=== PATIENT | female | born 2000 | race Caucasian/White ===

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

== ENCOUNTER 2018-10-28 08:48 | Emergency (ER) | payer OTHER ==
[2018-10-28 09:09] VITALS: BP 114/49; PULSE 61; TEMP 98.2; BMI 39.1
--- NOTE | 2018-10-28 10:18 | PDOC ---
History of Present Illness - General Chief Complaint: Chest Pain Stated Complaint: HICCUP/PAIN Time Seen by Provider: 10/28/18 10:05 History Source: Patient Exam Limitations: Clinical Condition - History of Present Illness Initial Comments: 10/28/18 10:13 Patient with no significant past medical history of present with complaint of three-day history of intermittent midsternal chest pain with intermittent hiccups. Patient reports pain is localized to the midsternal area and painful to press on the middle of chest. Patient denies nausea, vomiting, numbness or tingling sensation, dizziness, lightheadedness, palpitations. Patient denies any other symptoms Timing/Duration: other (3 days) Past History - Past Medical History Allergies/Adverse Reactions: Allergies Allergy/AdvReac Type Severity Reaction Status Date / Time No Known Allergies Allergy Verified 10/28/18 09:09 Home Medications: Ambulatory Orders Naproxen 500 mg PO BID PRN #20 tablet 10/28/18 COPD: No GI Disorders: Yes - Reproductive History (#): 0 Para: 0 Tubal Ligation: No - Immunization History Immunization Up to Date: Yes - Suicide/Smoking/Psychosocial Hx Smoking Status: No Smoking History: Never smoked Have you smoked in the past 12 months: No Number of Cigarettes Smoked Daily: 0 Hx Alcohol Use: No Drug/Substance Use Hx: No Substance Use Type: None Review of Systems - Review of Systems Able to Perform ROS?: Yes Is the patient limited French proficient: No Constitutional: No: See HPI, Fever, Malaise, Weakness HEENTM: No: Symptoms Reported, See HPI, Eye Pain, Blurred Vision, Tearing, Recent change in vision, Double Vision, Cataracts, Ear Pain, Ocular Prothesis, Ear Discharge, Nose Pain, Nose Congestion, Tinnitus, Nose Bleeding, Hearing Loss , Throat Pain, Throat Swelling, Mouth Pain, Dental Problems, Difficulty Swallowing, Mouth Swelling, Other Respiratory: No: Symptoms reported, See HPI, Cough, Orthopnea, Shortness of Breath, SOB with Exertion, SOB at Rest, Stridor, Wheezing, Productive cough, Hemoptysis, Other Cardiac (ROS): Yes: Symptoms Reported, See HPI, Chest Pain (mid-sternum). No: Edema, Irregular Heart Rate, Lightheadedness, Palpitations, Syncope, Chest Tightness, Other ABD/GI: No: Constipated, Diarrhea, Nausea, Vomiting Neurological: No: Numbness, Paresthesia, Weakness, Dizziness All Other Systems: Reviewed and Negative *Physical Exam - Vital Signs Last Vital Signs Temp Pulse Resp BP Pulse Ox 98.2 F 61 18 114/49 L 98 10/28/18 09:06 10/28/18 09:06 10/28/18 09:06 10/28/18 09:06 10/28/18 09:06 - Physical Exam Comments: 10/28/18 10:16 GENERAL: Well developed, well nourished. Awake and alert. No acute distress. HEENT: Normocephalic, atraumatic. PERRLA, EOMI. No conjunctival pallor. Sclera are non-icteric. Moist mucous membranes. Oropharynx is clear. NECK: Supple. Full ROM. CARDIOVASCULAR: Mild point tenderness to midsternal. Regular rate and rhythm. No murmurs, rubs, or gallops. Distal pulses are 2+ and symmetric. PULMONARY: No evidence of respiratory distress. Lungs clear to auscultation bilaterally. No wheezing, rales or rhonchi. ABDOMINAL: Soft. Non-tender. Non-distended. No rebound or guarding. No organomegaly. Normoactive bowel sounds. MUSCULOSKELETAL : Mild reproducible retrosternal chest tenderness.Normal range of motion at all joints. EXTREMITIES: No cyanosis. No clubbing. No edema. SKIN: Warm and dry. Normal capillary refill. No rashes. No jaundice. NEUROLOGICAL: Alert, awake, appropriate. Gait is normal without ataxia. PSYCHIATRIC: Cooperative. Good eye contact. Appropriate mood General Appearance: Yes: Nourished, Appropriately Dressed. No: Apparent Distress Moderate Sedation - Procedure Monitoring Vital Signs: Procedure Monitoring Vital Signs Temperature 98.2 F 10/28/18 09:06 Pulse Rate 61 10/28/18 09:06 Respiratory Rate 18 10/28/18 09:06 Blood Pressure 114/49 L 10/28/18 09:06 O2 Sat by Pulse Oximetry (%) 98 10/28/18 09:06 ED Treatment Course - RADIOLOGY Radiology Studies Ordered: Category Date Time Status CHEST PA & LAT [RAD] Stat Radiology 10/28/18 10:12 Ordered Medical Decision Making - Medical Decision Making 10/28/18 10:18 Patient with no significant past medical history of present with complaint of three-day history of intermittent midsternal chest pain with intermittent hiccups. Patient reports pain is localized to the midsternal area and painful to press on the middle of chest. Patient denies nausea, vomiting, numbness or tingling sensation, dizziness, lightheadedness, palpitations. Patient denies any other symptoms. Exam significant for mild reproducible midsternal chest tenderness otherwise unremarkable exam. EKG shows normal sinus rhythm. Symptoms likely costochondritis. Checks initially ordered to rule out acute chest pathology. 10/28/18 10:35 Chest x-ray shows no acute infiltrate or pathology. Patient is stable for discharge and naproxen as needed for pain with PCP follow-up *DC/Admit/Observation/Transfer Diagnosis at time of Disposition: Costochondral chest pain - Discharge Dispostion Disposition: HOME Condition at time of disposition: Stable Decision to Admit order: No - Prescriptions Prescriptions: Naproxen 500 mg PO BID PRN #20 tablet PRN Reason: pain - Referrals - Patient Instructions Printed Discharge Instructions: DI for Costochondritis Additional Instructions: EKG was normal. chest x-ray was normal as well. Symptoms likely from muscle pain. Take prescribed medication as needed for pain. Follow-up with primary care - Post Discharge Activity
[2018-10-28] MEDS ORDERED: IBUPROFEN 400 MG TABLET (FP) PO ONE (10:37)
[2018-10-28] MEDS ORDERED: IBUPROFEN 600 MG TABLET (FP) PO ONE (10:40)
--- NOTE | 2018-10-28 15:34 | EKG ---
Test Reason : Blood Pressure : / mmHG Vent. Rate : 062 BPM Atrial Rate : 062 BPM P-R Int : 158 ms QRS Dur : 098 ms QT Int : 408 ms P-R-T Axes : 029 071 047 degrees QTc Int : 414 ms SINUS RHYTHM WITH MARKED SINUS ARRHYTHMIA OTHERWISE NORMAL ECG WHEN COMPARED WITH ECG OF 20-FEB-2014 14:01, PREVIOUS ECG IS PRESENT Confirmed by CESAR KULKARNI MD ([id number]) on 10/28/2018 3:34:08 PM Referred By: Confirmed By:CESAR KULKARNI MD
== END 2018-10-28 10:55 | disposition home or self-care (01) ==
LOC: JERFT 08:48
DX: M94.0 Chondrocostal junction syndrome [Tietze] (principal)
CPT/HCPCS: 71046-TC-FY; 93005; 93010; 99281-25

== ENCOUNTER 2019-02-12 18:50 | Emergency (ER) | payer OTHER | END 2019-02-12 22:00 | disposition home or self-care (01) | LOC: JER 18:50 ==

== ENCOUNTER 2019-08-20 12:16 | Emergency (ER) | payer SELFPAY ==
[2019-08-20 12:36] VITALS: BMI 32.8
[2019-08-20] MEDS ORDERED: PANTOPRAZOLE SODIUM 40 MG VIAL IVPUSH ONE (13:30)
[2019-08-20] MEDS ORDERED: ONDANSETRON 4 MG/2 ML VIAL IVPUSH ONE (13:30)
[2019-08-20] MEDS ORDERED: KETOROLAC TROMETHAMINE 30 MG/1 ML VIAL IVPUSH ONE (13:30)
[2019-08-20] MEDS ORDERED: SODIUM CHLORIDE 1,000 ML IV STA (13:32)
[2019-08-20] MEDS ORDERED: PANTOPRAZOLE SODIUM 40 MG VIAL ONE (14:23)
[2019-08-20] MEDS ORDERED: ONDANSETRON 4 MG/2 ML VIAL ONE (14:23)
[2019-08-20] MEDS ORDERED: KETOROLAC TROMETHAMINE 30 MG/1 ML VIAL ONE (14:23)
--- NOTE | 2019-08-20 14:34 | PDOC ---
History of Present Illness - General History Source: Patient Exam Limitations: No Limitations - History of Present Illness Travel History: No Initial Comments: 08/20/19 13:33 19-year-old female presents the emergency room with complaints of epigastric burning along with mild fatigue, and menstrual cycle for the past 2 weeks. Patient states normally has prolonged menstrual cycles but also concerned since she just recently had a gastric balloon placed in [facility] earlier last month. Patient states was placed on Protonix which seems not to alleviate her epigastric burning. Patient now states midsternal burning for the past 2 days and so decided to come to the ER for further evaluation. Patient denies shortness of breath, palpitations, but does state mild nausea after meals. Quality: reports: moderate, burning Abdominal Pain Onset Location: reports: epigastric Pain Radiation: reports: chest Activities at Onset: reports: none Aggravating Factors: improves with: Eating Alleviating Factors: improves with: None <Diane Trinidad - Last Filed: 08/20/19 16:01> <Martine Burnette - Last Filed: 08/20/19 18:24> - General Chief Complaint: Pain, Acute Stated Complaint: CHEST PAIN Time Seen by Provider: 08/20/19 12:45 Past History - Travel Traveled outside of the country in the last 30 days: No Close contact w/someone who was outside of country & ill: No - Past Medical History COPD: No GI Disorders: No - Surgical History GI Surgery: Yes (Gastric Balloon In DR 08/02) - Reproductive History (#): 0 Para: 0 Tubal Ligation: No - Immunization History Immunization Up to Date: Yes - Psycho Social/Smoking Cessation Hx Smoking Status: No Smoking History: Unknown if ever smoked Have you smoked in the past 12 months: No Number of Cigarettes Smoked Daily: 0 Information on smoking cessation initiated: No Hx Alcohol Use: No Drug/Substance Use Hx: No Substance Use Type: None Patient Lives Alone: No Lives with/in: parents <Diane Trinidad - Last Filed: 08/20/19 16:01> <Martine Burnette - Last Filed: 08/20/19 18:24> - Past Medical History Allergies/Adverse Reactions: Allergies Allergy/AdvReac Type Severity Reaction Status Date / Time No Known Allergies Allergy Verified 08/20/19 12:36 Home Medications: Ambulatory Orders Naproxen Sodium [Midol] 220 mg PO ONCE 02/12/19 Ondansetron HCl [Zofran] 4 mg PO QID #20 tablet 08/20/19 Abd/GI Specific PMHX - Complaint Specific PMHX Diverticulitis: No Gall Bladder Disease: No GERD: No Hepatitis: No Irritable Bowel Synd (IBS): No <Diane Trinidad - Last Filed: 08/20/19 16:01> Review of Systems - Review of Systems Able to Perform ROS?: No Is the patient limited Cypriot proficient: No Constitutional: Yes: Loss of Appetite (mild), Weakness HEENTM: No: Symptoms Reported Respiratory: No: Symptoms reported Cardiac (ROS): Yes: Chest Pain ABD/GI: Yes: Nausea, Indigestion : No: Symptoms Reported Musculoskeletal: Yes: Muscle Weakness Integumentary: No: Symptoms Reported Neurological: Yes: Weakness. No: Headache, Dizziness <Diane Trinidad - Last Filed: 08/20/19 16:01> *Physical Exam - Vital Signs Last Vital Signs Temp Pulse Resp BP Pulse Ox 97.8 F 107 H 14 114/78 98 08/20/19 12:34 08/20/19 12:34 08/20/19 12:34 08/20/19 12:34 08/20/19 12:34 - Physical Exam General Appearance: Yes: Nourished, Appropriately Dressed. No: Apparent Distress HEENT: positive: Pale Conjunctivae Respiratory/Chest: positive: Lungs Clear, Normal Breath Sounds. negative: Chest Tender, Respiratory Distress, Accessory Muscle Use Cardiovascular: positive: Regular Rhythm, Tachycardia. negative: Murmur Gastrointestinal/Abdominal: positive: Soft, Tenderness (epigastric) Extremity: positive: Normal Inspection Integumentary: positive: Normal Color, Warm Neurologic: positive: Motor Strength 5/5 (ambulatory) <Diane Trinidad - Last Filed: 08/20/19 16:01> - Vital Signs Last Vital Signs Temp Pulse Resp BP Pulse Ox 97.8 F 107 H 14 114/78 98 08/20/19 12:34 08/20/19 12:34 08/20/19 12:34 08/20/19 12:34 08/20/19 12:34 <Martine Burnette - Last Filed: 08/20/19 18:24> Heart Score/ECG Review - ECG Intrepretation Rhythm: Regular Rhythm (Rate 86 normal sinus rhythm no ST elevation or depression) <ViviDiane - Last Filed: 08/20/19 16:01> ED Treatment Course - LABORATORY CBC & Chemistry Diagram: 08/20/19 14:11 08/20/19 14:11 <ViviDiane - Last Filed: 08/20/19 16:01> - LABORATORY CBC & Chemistry Diagram: 08/20/19 14:11 08/20/19 14:11 - ADDITIONAL ORDERS Additional order review: Laboratory Results 08/20/19 08/20/19 08/20/19 14:11 14:11 14:11 D-Dimer 1411 H Sodium Potassium Chloride Carbon Dioxide Anion Gap BUN Creatinine Est GFR (CKD-EPI)AfAm Est GFR (CKD-EPI)NonAf Random Glucose Calcium Magnesium Total Bilirubin AST ALT Alkaline Phosphatase Total Protein Albumin Lipase Serum , Qual Negative Blood Type A POSITIVE Antibody Screen Negative 08/20/19 14:11 D-Dimer Sodium 140 Potassium 4.7 Chloride 104 Carbon Dioxide 19 L Anion Gap 17 H BUN 12.9 Creatinine 1.1 Est GFR (CKD-EPI)AfAm 83.11 Est GFR (CKD-EPI)NonAf 71.71 Random Glucose 79 Calcium 9.8 Magnesium 2.2 Total Bilirubin 0.3 AST 35 ALT 39 Alkaline Phosphatase 84 Total Protein 8.5 H Albumin 4.1 Lipase 367 Serum , Qual Blood Type Antibody Screen 08/20/19 14:11 RBC 5.20 MCV 79.7 L MCHC 31.9 L RDW 14.7 MPV 9.5 Neutrophils % 79.0 D Lymphocytes % 15.6 D Monocytes % 5.1 Eosinophils % 0.1 D Basophils % 0.2 <Martine Burnette - Last Filed: 08/20/19 18:24> Medical Decision Making - Medical Decision Making 08/20/19 14:42 Chief complaint: Patient with epigastric and midsternal chest burning along with fatigue and weakness. Patient status post gastric balloon 17 days ago and ER and states has been eating as recommended despite the nausea and epigastric pain patient currently on Protonix stating symptoms do not resolve patient also with prolonged menses x2 weeks Exam: Patient with pale conjunctiva tachycardic in triage epi gastric tenderness on exam plan Plan: Labs, urine, antiemetics, Toradol, IV Protonix, 08/20/19 15:20 Laboratory Tests 02/12/19 08/20/19 08/20/19 20:17 14:11 14:11 WBC 11.6 H Hgb 13.2 Hct 41.4 D-Dimer 1411 H C. trachomatis (TADEO) Negative N. gonorrhoeae (TADEO) Negative Chest CTA ordered 08/20/19 15:42 Laboratory Tests 08/20/19 08/20/19 14:11 14:11 Sodium 140 Potassium 4.7 Chloride 104 Carbon Dioxide 19 L Anion Gap 17 H BUN 12.9 Creatinine 1.1 Est GFR (CKD-EPI)AfAm 83.11 Est GFR (CKD-EPI)NonAf 71.71 Random Glucose 79 Calcium 9.8 Total Protein 8.5 H Albumin 4.1 Lipase 367 Serum , Qual Pending Pt states feeling much better 08/20/19 16:01 Laboratory Tests 08/20/19 14:11 Serum , Qual Negative <Diane Trinidad - Last Filed: 08/20/19 16:01> Discharge <Diane Trinidad - Last Filed: 08/20/19 16:01> <Martine Burnette - Last Filed: 08/20/19 18:24> - Additional Discharge Information Prescriptions: Ondansetron HCl [Zofran] 4 mg PO QID #20 tablet - Follow up/Referral Referrals: Gaetano Mckeon [Primary Care Provider] - - Patient Discharge Instructions - Post Discharge Activity
[2019-08-20 14:43] LABS: BASO % 0.2 % (0-2.0); EOS % 0.1 % (0-4.5); HEMATOCRIT 41.4 % (32.4-45.2); HEMOGLOBIN 13.2 GM/dL (10.7-15.3); LYMPH % 15.6 % (8-40); MCH 25.4 pg (25.7-33.7); MCHC 31.9 g/dl (32.0-36.0); MEAN CELL VOLUME 79.7 fl (80-96); MEAN PLT VOLUME 9.5 fl (7.5-11.1); MONO % 5.1 % (3.8-10.2); PLATELET COUNT 367 K/MM3 (134-434); RDW 14.7 % (11.6-15.6); WHITE BLOOD COUNT 11.6 K/mm3 (4.0-10.0)
[2019-08-20 15:28] LABS: ALBUMIN 4.1 g/dl (3.4-5.0); BILIRUBIN,TOTAL 0.3 mg/dL (0.2-1); BLOOD UREA NITROGEN 12.9 mg/dL (7-18); CALCIUM 9.8 mg/dL (8.5-10.1); CREATININE 1.1 mg/dL (0.55-1.3); MAGNESIUM 2.2 mg/dL (1.8-2.4); POTASSIUM 4.7 mmol/L (3.5-5.1); TOT PROT 8.5 g/dl (6.4-8.2)
--- NOTE | 2019-08-20 18:18 | PDOC ---
*Physical Exam - Vital Signs Last Vital Signs Temp Pulse Resp BP Pulse Ox 97.8 F 107 H 14 114/78 98 08/20/19 12:34 08/20/19 12:34 08/20/19 12:34 08/20/19 12:34 08/20/19 12:34 ED Treatment Course - LABORATORY CBC & Chemistry Diagram: 08/20/19 14:11 08/20/19 14:11 - ADDITIONAL ORDERS Additional order review: Laboratory Results 08/20/19 08/20/19 08/20/19 14:11 14:11 14:11 D-Dimer 1411 H Sodium Potassium Chloride Carbon Dioxide Anion Gap BUN Creatinine Est GFR (CKD-EPI)AfAm Est GFR (CKD-EPI)NonAf Random Glucose Calcium Magnesium Total Bilirubin AST ALT Alkaline Phosphatase Total Protein Albumin Lipase Serum , Qual Negative Blood Type A POSITIVE Antibody Screen Negative 08/20/19 14:11 D-Dimer Sodium 140 Potassium 4.7 Chloride 104 Carbon Dioxide 19 L Anion Gap 17 H BUN 12.9 Creatinine 1.1 Est GFR (CKD-EPI)AfAm 83.11 Est GFR (CKD-EPI)NonAf 71.71 Random Glucose 79 Calcium 9.8 Magnesium 2.2 Total Bilirubin 0.3 AST 35 ALT 39 Alkaline Phosphatase 84 Total Protein 8.5 H Albumin 4.1 Lipase 367 Serum , Qual Blood Type Antibody Screen 08/20/19 14:11 RBC 5.20 MCV 79.7 L MCHC 31.9 L RDW 14.7 MPV 9.5 Neutrophils % 79.0 D Lymphocytes % 15.6 D Monocytes % 5.1 Eosinophils % 0.1 D Basophils % 0.2 Medical Decision Making - Medical Decision Making Patient was endorsed to me to follow CT scan for chest pain ruling out PE Patient was seen and evaluated. She has been in no acute distress. Currently with no nausea or vomiting. Tolerating p.o. CT scan is resulted below discussed with the patient 08/20/19 18:14 Patient Full Name: MAGALY KIRK Patient Accession No: [id number] Patient : 2000 Reason for Exam: r/o pe Referring Physician: JIMMY RAMIREZ Patient Name: JOSIAH MCKENZIE THIS IS A PRELIMINARY REPORT FROM [facility] DATE OF SERVICE: 2019-08-20 16:00:39 IMAGES: [id number] EXAM: CHEST CTA HISTORY: Rule out PE COMPARISON: None. FINDINGS: There is no evidence of pulmonary embolism Thoracic aorta is normal in course and caliber without dissection The heart is not enlarged. No pericardial effusion No pathologically enlarged mediastinal, hilar or axillary lymph nodes Soft tissue density in the anterior mediastinum, likely residual thymic tissue The tracheobronchial tree is patent No airspace consolidation, infiltrates or pleural effusions. No pulmonary nodules or masses There is a gastric balloon which is not completely imaged Diffuse decreased attenuation of the liver may be incidentally related to arterial phase bolus timing versus fatty changes One or more of the following dose reduction techniques were used: automated exposure control, adjustment of the mA and/or kV according to patient size, use of iterative reconstructive technique. THIS DOCUMENT HAS BEEN ELECTRONICALLY SIGNED Shiv Joyce MD 08/20/2019 17:52 TORRES Caballero Please call Imaging Psychologist Educational [phone] ([phone]) with questions. INTERPRETING RADIOLOGIST: Shiv Joyce MD Electronically Signed: Aug 20, 2019 05:54PM EST Selected Entries 08/20/19 18:30 Temperature 97.9 F Pulse Rate [ 98 H Right Radial] Respiratory 18 Rate Blood Pressure 109/73 [Left Arm] O2 Sat by Pulse 99 Oximetry (%) I discussed the physical exam findings, ancillary test results and final diagnoses with the patient. I answered all of the patient's questions. The patient was satisfied with the care received and felt comfortable with the discharge plan and treatment plan. The Patient agrees to follow up with the primary care physician within 24-72 hours. Patient states currently she is communicating with her surgeon by Text. She did text him today and he told her symptoms are normal. Discharge - Discharge Information Problems reviewed: Yes Clinical Impression/Diagnosis: Epigastric abdominal pain Chest pain Qualifiers: Chest pain type: unspecified Qualified Code(s): R07.9 - Chest pain, unspecified Condition: Stable Disposition: HOME - Additional Discharge Information Prescriptions: Ondansetron HCl [Zofran] 4 mg PO QID #20 tablet - Follow up/Referral Referrals: Gaetano Mckeon [Primary Care Provider] - - Patient Discharge Instructions Patient Printed Discharge Instructions: DI for Gastritis, DI for Nausea -- Adult, DI for Vomiting -- Adult Additional Instructions: Your Discharge Instructions: You must call primary care physician within 24 hours to arrange follow-up. Return to the Emergency Department with any new, persistent or worsening symptoms, for fever, chills, SOB, dizziness or any other concerning changes that may occur. - Post Discharge Activity
[2019-08-20 18:31] VITALS: BP 109/73; PULSE 98; TEMP 97.9
--- NOTE | 2019-08-22 13:42 | EKG ---
Test Reason : Blood Pressure : / mmHG Vent. Rate : 086 BPM Atrial Rate : 086 BPM P-R Int : 152 ms QRS Dur : 092 ms QT Int : 378 ms P-R-T Axes : 062 093 068 degrees QTc Int : 452 ms NORMAL SINUS RHYTHM RIGHTWARD AXIS BORDERLINE ECG WHEN COMPARED WITH ECG OF 12-FEB-2019 20:25, NO SIGNIFICANT CHANGE WAS FOUND Confirmed by RADHA OROZCO MD ([id number]) on 08/22/2019 1:41:45 PM Referred By: Confirmed By:RADHA OROZCO MD
== END 2019-08-20 18:30 | disposition home or self-care (01) ==
LOC: JER 12:16
DX: R10.13 Epigastric pain (principal); R07.9 Chest pain, unspecified
CPT/HCPCS: 36415; 71275-TC; 80053; 83690; 83735; 84703; 85025; 85379; 86850; 86900; 86901; 93005; 93010; 99283-25

== ENCOUNTER 2020-04-04 16:59 | Emergency (ER) | payer OTHER ==
[2020-04-04 17:05] VITALS: BP 125/72; PULSE 76; TEMP 98; BMI 34.3
--- NOTE | 2020-04-04 17:07 | PDOC ---
Rapid Medical Evaluation Time Seen by Provider: 04/04/20 17:01 Medical Evaluation: Allergies Allergy/AdvReac Type Severity Reaction Status Date / Time No Known Allergies Allergy Verified 08/26/19 02:08 04/04/20 17:01 I have performed a brief in-person evaluation of this patient. The patient presents with a chief complaint of:facial and tongue numbness x 30 minutes. No pmhx Pertinent physical exam findings:stable, no gross facial ab/nl but when asked to close eyes, appears to be unable to close L eye fully compared to R, no obvious droop, ? early Archuleta's. No focal deficit otherwise I have ordered the following:nothing The patient will proceed to the ED for further evaluation. Discharge Disposition - Diagnosis Facial numbness - Referrals - Patient Instructions - Post Discharge Activity
--- NOTE | 2020-04-04 18:45 | PDOC ---
History of Present Illness - General Chief Complaint: CVA/TIA Stated Complaint: FACIAL NUMBNESS Time Seen by Provider: 04/04/20 17:01 - History of Present Illness Initial Comments: 04/04/20 18:44 19-year-old female without comorbidities presents for evaluation of left-sided facial numbness x2 hours. No bilateral upper or lower extremity weakness. No headache nausea vomiting or visual changes. No ear pain no dizziness. Past History - Medical History Allergies/Adverse Reactions: Allergies Allergy/AdvReac Type Severity Reaction Status Date / Time No Known Allergies Allergy Verified 04/04/20 17:05 Home Medications: Ambulatory Orders Naproxen Sodium [Midol] 220 mg PO ONCE 02/12/19 Ondansetron HCl [Zofran] 4 mg PO QID #20 tablet 08/20/19 Dextran 70/Hypromellose/Pf [Artificial Tears Drops] 1 each OP ASDIR #1 droperette 04/04/20 Mineral Oil/Petrolatum,White [Akwa Tears Ointment] 3.5 gm OP BID #1 oint...g. 04/04/20 Valacyclovir HCl [Valtrex -] 1,000 mg PO TID 7 Days #21 tablet 04/04/20 predniSONE [Deltasone -] 10 mg PO ASDIR #61 tab 04/04/20 COPD: No GI Disorders: No - Surgical History GI Surgery: Yes (Gastric Balloon In 08/02) - Reproductive History (#): 0 Para: 0 Therapeutic (s) & number: No Tubal Ligation: No - Immunization History Immunization Up to Date: Yes - Psycho-Social/Smoking History Smoking Status: No Smoking History: Current every day smoker Have you smoked in the past 12 months: No Number of Cigarettes Smoked Daily: 0 Information on smoking cessation initiated: No - Substance Abuse Hx (Audit-C & DAST Scrn) How often the patient has a drink containing alcohol: Monthly or less Score: In Men: 4 or > Positive; In Women: 3 or > Positive: 1 Screen Result (Pos requires Nsg. Audit-10AR): Negative Review of Systems - Review of Systems Neurological: Yes: Numbness *Physical Exam - Vital Signs Last Vital Signs Temp Pulse Resp BP Pulse Ox 98 F 76 18 125/72 99 04/04/20 17:03 04/04/20 17:03 04/04/20 17:03 04/04/20 17:03 04/04/20 17:03 - Physical Exam 04/04/20 18:43 GENERAL: The patient is awake, alert, and fully oriented, in no acute distress. HEAD: Normal with no signs of trauma. EYES: sclera anicteric, conjunctiva clear. ENT: Ears normal tympanic membranes normal oropharynx clear uvula midline NECK: Normal range of motion LUNGS: Breath sounds equal, clear to auscultation bilaterally. No wheezes, and no crackles. HEART: S1 and S2 without murmur, rub or gallop. ABDOMEN: Soft, nontender, normoactive bowel sounds. No guarding, no rebound. No masses. EXTREMITIES: Normal range of motion, no edema. No clubbing or cyanosis. No cords, erythema, or tenderness. NEUROLOGICAL: There is no appreciable facial asymmetry there is left eyelid weakness with inability to raise left eyebrow. No weakness on the face no tongue deviation no pronator drift. No gross sensorimotor deficits otherwise neurovascular intact 5 out of 5 strength in bilateral upper and lower extremities. PSYCH: Normal mood, normal affect. SKIN: Warm, Dry, normal turgor, no rashes or lesions noted. ED Treatment Course - ADDITIONAL ORDERS Additional order review: Laboratory Results 04/04/20 17:45 Urine HCG, Qual Negative Medical Decision Making - Medical Decision Making 04/04/20 18:43 Examination consistent with Archuleta's palsy prednisone valacyclovir artificial tears ointment and drops follow-up with neurology I have reviewed the pathophysiology with the patient. They are in agreement with the treatment plan all questions were answered to their satisfaction. Understanding for follow-up without fail was also conveyed to the patient. Again they are in agreement. Discharge - Discharge Information Problems reviewed: Yes Clinical Impression/Diagnosis: Facial numbness, Archuleta's palsy Condition: Stable Disposition: HOME - Admission No - Additional Discharge Information Prescriptions: Dextran 70/Hypromellose/Pf [Artificial Tears Drops] 1 each OP ASDIR #1 droperette Mineral Oil/Petrolatum,White [Akwa Tears Ointment] 3.5 gm OP BID #1 oint...g. predniSONE [Deltasone -] 10 mg PO ASDIR #61 tab Valacyclovir HCl [Valtrex -] 1,000 mg PO TID 7 Days #21 tablet - Follow up/Referral Referrals: Riccardo Naidu MD [Primary Care Provider] - Raymundo Becker MD [Staff Physician] - - Patient Discharge Instructions Patient Printed Discharge Instructions: DI for Archuleta's Palsy Additional Instructions: Please use the medication as directed and return to the emergency room should symptoms worsen. Without fail follow-up with neurology in 1 to 2 days for further evaluation and treatment options. - Post Discharge Activity
== END 2020-04-04 18:48 | disposition home or self-care (01) ==
LOC: JER 16:59 → JERFT 16:59
DX: R20.0 Anesthesia of skin (principal); G51.0 Bell's palsy
CPT/HCPCS: 84703; 99283-25

== ENCOUNTER 2020-12-24 10:57 | Emergency (ER) | payer OTHER ==
[2020-12-24 11:10] VITALS: BP 113/77; PULSE 57; TEMP 98.4; BMI 34.3
[2020-12-24] MEDS ORDERED: MAG HYDROX/AL HYDROX/SIMETH -MYLANTA- ORAL SUSPENSION PO ONE (11:42)
[2020-12-24] MEDS ORDERED: FAMOTIDINE 20 MG TABLET PO ONE (11:42)
[2020-12-24] MEDS ORDERED: FAMOTIDINE 20 MG TABLET ONE (12:11)
[2020-12-24] MEDS ORDERED: MAG HYDROX/AL HYDROX/SIMETH 30 ML UNIT-DOSE CUP ONE (12:11)
[2020-12-24 13:09] LABS: BASO % 0.4 % (0-2.0); EOS % 1.6 % (0-4.5); HEMATOCRIT 32.2 % (32.4-45.2); HEMOGLOBIN 10.5 GM/dL (10.7-15.3); LYMPH % 45.3 % (8-40); MCH 25.9 pg (25.7-33.7); MCHC 32.6 g/dl (32.0-36.0); MEAN CELL VOLUME 79.7 fl (80-96); MEAN PLT VOLUME 8.4 fl (7.5-11.1); NEUT % 43.7 % (42.8-82.8); PLATELET COUNT 334 K/MM3 (134-434); RBC 4.04 M/mm3 (3.60-5.2); RDW 15.5 % (11.6-15.6); WHITE BLOOD COUNT 6.3 K/mm3 (4.0-10.0)
[2020-12-24 13:27] LABS: CHLORIDE 106 mmol/L (98-107); SODIUM 138 mmol/L (136-145)
[2020-12-24 13:30] LABS: ALBUMIN 3.6 g/dl (3.4-5.0); ANION GAP 4 MMOL/L (8-16); CALCIUM 9.1 mg/dL (8.5-10.1); CO2 28 mmol/L (21-32); GLUCOSE,RANDOM 90 mg/dL (74-106); MAGNESIUM 2.2 mg/dL (1.8-2.4)
[2020-12-24 13:32] LABS: SGOT/AST 18 U/L (15-37); SGPT/ALT 38 U/L (13-61)
[2020-12-24 13:33] LABS: CREATININE 0.7 mg/dL (0.55-1.3)
[2020-12-24 13:34] LABS: BILIRUBIN,TOTAL 0.2 mg/dL (0.2-1); TOT PROT 7.3 g/dl (6.4-8.2)
[2020-12-24 13:35] LABS: ALK PHOS 64 U/L (45-117)
== END 2020-12-24 14:10 | disposition home or self-care (01) ==
LOC: JER 10:57
DX: R07.9 Chest pain, unspecified (principal)
CPT/HCPCS: 36415; 71046-TC-FY; 80053; 82550; 83735; 84484; 85025; 93005; 93010; 99285-25; C9803; U0003; U0005

== ENCOUNTER 2021-01-18 01:44 | Emergency (ER) | payer OTHER ==
[2021-01-18 02:04] VITALS: BMI 40.2
[2021-01-18] MEDS ORDERED: DIPHTH,PERTUSS(ACELL),TET 0.5 ML DISP.SYRIN IM ONE ×2 (02:34→03:14)
[2021-01-18] MEDS ORDERED: morphine CARPU-JECT 2 MG/1 ML DISP.SYRIN IM ONE (02:34)
[2021-01-18] MEDS ORDERED: MORPHINE SULFATE 2 MG/ML VIAL ONE (03:14)
[2021-01-18 07:28] VITALS: BP 124/64; PULSE 88; TEMP 98.4
== END 2021-01-18 04:11 | disposition short-term general hospital (02) ==
LOC: JER 01:44
PROC: 3E0234Z Introduction of Serum, Toxoid and Vaccine into Muscle, Percutaneous Approach (ICD-10-PCS; principal; 2021-01-18)
PROC: 3E023NZ Introduction of Analgesics, Hypnotics, Sedatives into Muscle, Percutaneous Approach (ICD-10-PCS; 2021-01-18)
DX: S01.81XA Laceration without foreign body of other part of head, initial encounter (principal)
CPT/HCPCS: 90471; 90715; 99284-25

== ENCOUNTER 2021-12-17 13:04 | Emergency (ER) | payer OTHER ==
[2021-12-17 13:48] VITALS: BP 111/72; PULSE 67; TEMP 98; BMI 36.8
[2021-12-17] MEDS ORDERED: METOCLOPRAMIDE HCL INJECTION 10 MG/2 ML VIAL IVPUSH ONE (14:56)
[2021-12-17] MEDS ORDERED: SODIUM CHLORIDE 0.9% 500 ML INFUS.BAG IV ONE (14:56)
[2021-12-17] MEDS ORDERED: ACETAMINOPHEN 1000 MG/100 ML BAG IVPB ONE (14:57)
[2021-12-17] MEDS ORDERED: ACETAMINOPHEN INJECTION 100 ML IVPB ONE (15:26)
[2021-12-17] MEDS ORDERED: METOCLOPRAMIDE HCL INJECTION 10 MG/2 ML VIAL ONE (15:26)
== END 2021-12-17 16:16 | disposition home or self-care (01) ==
LOC: JER 13:04
PROC: 3E0333Z Introduction of Anti-inflammatory into Peripheral Vein, Percutaneous Approach (ICD-10-PCS; principal; 2021-12-17)
PROC: 3E033GC Introduction of Other Therapeutic Substance into Peripheral Vein, Percutaneous Approach (ICD-10-PCS; 2021-12-17)
PROC: 3E033GC Introduction of Other Therapeutic Substance into Peripheral Vein, Percutaneous Approach (ICD-10-PCS; 2021-12-17)
DX: R51.9 Headache, unspecified (principal)
CPT/HCPCS: 84703; 99284-25

== ENCOUNTER 2022-01-07 15:03 | Emergency (ER) | payer OTHER ==
[2022-01-07 15:21] VITALS: BP 115/79; PULSE 81; TEMP 98; BMI 38.4
== END 2022-01-07 16:28 | disposition home or self-care (01) ==
LOC: JERFT 15:03
DX: N61.1 Abscess of the breast and nipple (principal)
CPT/HCPCS: 99283-25

== ENCOUNTER 2022-05-17 18:30 | Emergency (ER) | payer OTHER ==
[2022-05-17 18:41] VITALS: BP 115/48; PULSE 77; RESP 18; TEMP 98.7; BMI 37.6
[2022-05-17] MEDS ORDERED: ACETAMINOPHEN 1000 MG/100 ML BAG IVPB ONE (18:54)
[2022-05-17] MEDS ORDERED: ACETAMINOPHEN INJECTION 100 ML IVPB ONE (19:30)
[2022-05-17 19:33] LABS: BASO % 0.6 % (0-2.0); EOS % 1.4 % (0-4.5); HEMATOCRIT 27.3 % (32.4-45.2); HEMOGLOBIN 8.5 GM/dL (10.7-15.3); MCHC 31.1 g/dl (32.0-36.0); MEAN CELL VOLUME 67.6 fl (80-96); MEAN PLT VOLUME 7.8 fl (7.5-11.1); MONO % 8.1 % (3.8-10.2); NEUT % 60.9 % (42.8-82.8); PLATELET COUNT 394 10^3/uL (134-434); RBC 4.03 M/mm3 (3.60-5.2); RDW 16.9 % (11.6-15.6); WHITE BLOOD COUNT 7.2 K/mm3 (4.0-10.0)
[2022-05-17 19:38] LABS: EPI CELLS 19 /uL (0-25.1); HCG,QUALITATIVE URINE Negative; HYALINE CASTS 1 /uL (0-3.1); PH,URINE 5.5 (5.0-8.0); URINE APPEARANCE CLEAR; URINE BACTERIA 47 /uL (0-1359); URINE BILIRUBIN NEGATIVE (NEGATIVE); URINE COLOR YELLOW; URINE GLUCOSE (UA) NEGATIVE (NEGATIVE); URINE KETONE NEGATIVE (NEGATIVE); URINE LEUK ESTERASE NEGATIVE (NEGATIVE); URINE NITRITE NEGATIVE (NEGATIVE); URINE PROTEIN NEGATIVE (NEGATIVE); URINE RBC 25 /uL (0-23.9); URINE UROBILINOGEN 0.2 mg/dL (0.2-1.0); URINE WBC 12 /uL (0-25.8)
[2022-05-17] MEDS ORDERED: IBUPROFEN 600 MG TABLET (FP) PO ONE ×2 (19:48→19:50)
[2022-05-17] MEDS ORDERED: ACETAMINOPHEN 500 MG TABLET (FP) PO ONE (19:48)
[2022-05-17] MEDS ORDERED: ACETAMINOPHEN 500 MG TABLET (FP) ONE (19:50)
[2022-05-17 19:56] LABS: ANISOCYTOSIS 2+; MACROCYTOSIS 1+
[2022-05-17 20:00] LABS: ALBUMIN 3.5 g/dl (3.4-5.0); BLOOD UREA NITROGEN 10.2 mg/dL (7-18)
[2022-05-17 20:02] LABS: CREATININE 0.7 mg/dL (0.55-1.3)
[2022-05-17 20:04] LABS: BILIRUBIN,TOTAL 0.2 mg/dL (0.2-1); TOT PROT 7.1 g/dl (6.4-8.2)
== END 2022-05-17 20:36 | disposition home or self-care (01) ==
LOC: JER 18:30
DX: N93.9 Abnormal uterine and vaginal bleeding, unspecified (principal)
CPT/HCPCS: 36415; 76830-TC; 80053; 81003; 84703; 85025; 87086; 87186; 99284-25

== ENCOUNTER 2022-06-15 13:21 | Observation (INO) | payer OTHER ==
[2022-06-15] MEDS ORDERED: SODIUM CHLORIDE 1,000 ML IV STA (14:12)
[2022-06-15] MEDS ORDERED: ACETAMINOPHEN 500 MG TABLET (FP) PO ONE (14:22)
[2022-06-15] MEDS ORDERED: ACETAMINOPHEN 500 MG TABLET (FP) ONE (14:35)
[2022-06-15 15:11] LABS: URINE APPEARANCE CLEAR; URINE BILIRUBIN NEGATIVE (NEGATIVE); URINE COLOR YELLOW; URINE GLUCOSE (UA) NEGATIVE (NEGATIVE); URINE KETONE 3+ (NEGATIVE); URINE LEUK ESTERASE NEGATIVE (NEGATIVE); URINE NITRITE NEGATIVE (NEGATIVE); URINE PROTEIN NEGATIVE (NEGATIVE)
[2022-06-15 15:13] LABS: HCG,QUALITATIVE URINE Negative
[2022-06-15 15:53] LABS: BASO % 0.5 % (0-2.0); EOS % 0.3 % (0-4.5); HEMATOCRIT 28.9 % (32.4-45.2); HEMOGLOBIN 8.7 GM/dL (10.7-15.3); MCHC 29.9 g/dl (32.0-36.0); MEAN PLT VOLUME 7.4 fl (7.5-11.1); MONO % 7.7 % (3.8-10.2); NEUT % 70.5 % (42.8-82.8); PLATELET COUNT 437 10^3/uL (134-434); RBC 4.45 M/mm3 (3.60-5.2); RDW 17.6 % (11.6-15.6); WHITE BLOOD COUNT 10.5 K/mm3 (4.0-10.0)
[2022-06-15 15:59] LABS: INR 1.18 (0.83-1.09); PROTHROMBIN TIME (PATIENT) 13.6 SEC (9.7-13.0)
[2022-06-15 16:02] LABS: ACTIVATED PTT 29.6 SECONDS (25.2-36.5)
[2022-06-15 16:04] LABS: MCH 19.4 pg (25.7-33.7)
[2022-06-15 16:12] LABS: CALCIUM 9.2 mg/dL (8.5-10.1)
[2022-06-15 16:14] LABS: ALBUMIN 3.7 g/dl (3.4-5.0); BLOOD UREA NITROGEN 12.1 mg/dL (7-18); MAGNESIUM 2.5 mg/dL (1.8-2.4)
[2022-06-15 16:17] LABS: CREATININE 0.6 mg/dL (0.55-1.3)
[2022-06-15 16:18] LABS: BILIRUBIN,TOTAL 0.3 mg/dL (0.2-1)
[2022-06-15 16:19] LABS: TOT PROT 7.5 g/dl (6.4-8.2)
[2022-06-15 16:54] LABS: ANISOCYTOSIS 3+; MACROCYTOSIS 1+
[2022-06-15] MEDS ORDERED: ACETAMINOPHEN 325 MG TABLET (FP) PO PRN (21:06)
[2022-06-15] MEDS ORDERED: FERROUS SO4 325 MG TABLET (FP) ONE (22:37)
[2022-06-15] MEDS: FERROUS SO4 325 MG TABLET (FP) PO SCH (22:42)
[2022-06-15] MEDS ORDERED: ACETAMINOPHEN 325 MG TABLET (FP) ONE (22:45)
[2022-06-16] MEDS ORDERED: ASCORBIC ACID 500 MG TABLET (FP) ONE (10:13)
[2022-06-16] MEDS ORDERED: FERROUS SO4 325 MG TABLET (FP) ONE (10:13)
[2022-06-16] MEDS: FERROUS SO4 325 MG TABLET (FP) PO SCH (10:14)
[2022-06-16] MEDS: ASCORBIC ACID 500 MG TABLET (FP) PO SCH (10:14)
[2022-06-16 11:08] LABS: HEMATOCRIT 27.4 % (32.4-45.2); HEMOGLOBIN 8.2 GM/dL (10.7-15.3); MCHC 29.8 g/dl (32.0-36.0); MEAN CELL VOLUME 65.4 fl (80-96); MEAN PLT VOLUME 7.7 fl (7.5-11.1); PLATELET COUNT 413 10^3/uL (134-434); RBC 4.19 M/mm3 (3.60-5.2); RDW 17.3 % (11.6-15.6); WHITE BLOOD COUNT 6.4 K/mm3 (4.0-10.0)
[2022-06-16 11:19] LABS: MCH 19.5 pg (25.7-33.7)
[2022-06-16 11:30] LABS: CALCIUM 8.6 mg/dL (8.5-10.1)
[2022-06-16 11:31] LABS: BLOOD UREA NITROGEN 13.1 mg/dL (7-18)
[2022-06-16 11:33] LABS: CREATININE 0.6 mg/dL (0.55-1.3)
[2022-06-17 00:46] VITALS: RESP 20; BMI 37.0
[2022-06-17] MEDS: FERROUS SO4 325 MG TABLET (FP) PO SCH (10:17)
[2022-06-17] MEDS: ASCORBIC ACID 500 MG TABLET (FP) PO SCH (10:17)
[2022-06-17 10:48] VITALS: BP 100/58; PULSE 68; TEMP 97.8
[2022-06-17 12:06] LABS: HEMATOCRIT 26.4 % (32.4-45.2); HEMOGLOBIN 8.1 GM/dL (10.7-15.3); MCHC 30.5 g/dl (32.0-36.0); MEAN CELL VOLUME 64.5 fl (80-96); MEAN PLT VOLUME 7.6 fl (7.5-11.1); PLATELET COUNT 376 10^3/uL (134-434); RDW 17.6 % (11.6-15.6); WHITE BLOOD COUNT 7.8 K/mm3 (4.0-10.0)
[2022-06-17 12:13] LABS: MCH 19.7 pg (25.7-33.7)
[2022-06-17 12:51] LABS: ALBUMIN 3.4 g/dl (3.4-5.0); BILIRUBIN,TOTAL 0.1 mg/dL (0.2-1); BLOOD UREA NITROGEN 12.5 mg/dL (7-18); CALCIUM 9.3 mg/dL (8.5-10.1); CREATININE 0.6 mg/dL (0.55-1.3); MAGNESIUM 2.4 mg/dL (1.8-2.4); PHOSPHOROUS 3.3 mg/dL (2.5-4.9); TOT PROT 7.1 g/dl (6.4-8.2)
== END 2022-06-17 11:52 | disposition home or self-care (01) ==
LOC: JER 13:21 → JERFT 13:21 → JERBED 16:57 → J4W 06-16 20:49
PROVIDERS: ADMIT Internal Medicine; ATTEND Internal Medicine
PROC: 3E0337Z Introduction of Electrolytic and Water Balance Substance into Peripheral Vein, Percutaneous Approach (ICD-10-PCS; principal; 2022-06-15)
DX: D64.9 Anemia, unspecified (principal); M54.9 Dorsalgia, unspecified; E28.2 Polycystic ovarian syndrome; R07.9 Chest pain, unspecified; E66.8 Other obesity; R94.31 Abnormal electrocardiogram [ECG] [EKG]; Z68.37 Body mass index [BMI] 37.0-37.9, adult
CPT/HCPCS: 36415; 71046-TC-FY; 80048; 80053; 81003; 83036; 83540; 83550; 83735; 84100; 84484; 84703; 85025; 85027; 85610; 85730; 86850; 86900; 86901; 87804; 93005; 93010; 93306-TC; 96360; 99285-25; C9803-CS; G0378; U0003; U0005

== ENCOUNTER 2022-09-15 16:09 | Emergency (ER) | payer OTHER ==
[2022-09-15 17:32] VITALS: BP 129/81; PULSE 80; RESP 20; TEMP 98.8; BMI 33.6
[2022-09-15 19:15] LABS: INR 1.11 (0.83-1.09); PROTHROMBIN TIME (PATIENT) 12.8 SEC (9.7-13.0)
[2022-09-15 19:16] LABS: CALCIUM 8.9 mg/dL (8.5-10.1)
[2022-09-15 19:17] LABS: ALBUMIN 3.5 g/dl (3.4-5.0); BLOOD UREA NITROGEN 21.1 mg/dL (7-18)
[2022-09-15 19:20] LABS: CREATININE 0.9 mg/dL (0.55-1.3)
[2022-09-15 19:21] LABS: TOT PROT 7.3 g/dl (6.4-8.2)
[2022-09-15 19:22] LABS: BILIRUBIN,TOTAL 0.2 mg/dL (0.2-1)
[2022-09-15 19:49] LABS: BASO % 0.3 % (0-2.0); EOS % 1.1 % (0-4.5); HEMATOCRIT 32.9 % (32.4-45.2); HEMOGLOBIN 9.7 GM/dL (10.7-15.3); MCHC 29.7 g/dl (32.0-36.0); MEAN CELL VOLUME 65.9 fl (80-96); MEAN PLT VOLUME 8.5 fl (7.5-11.1); MONO % 6.6 % (3.8-10.2); PLATELET COUNT 448 10^3/uL (134-434); RBC 4.99 M/mm3 (3.60-5.2); RDW 21.2 % (11.6-15.6); WHITE BLOOD COUNT 7.5 K/mm3 (4.0-10.0)
[2022-09-15 19:50] LABS: MCH 19.5 pg (25.7-33.7)
[2022-09-15 23:22] LABS: ANISOCYTOSIS 1+; MACROCYTOSIS 0; PLATELET ESTIMATE NORMAL
== END 2022-09-15 20:15 | disposition home or self-care (01) ==
LOC: JER 16:09
DX: R07.89 Other chest pain (principal)
CPT/HCPCS: 36415; 71046-TC-FY; 80053; 84484; 84703; 85025; 85379; 85610; 93005; 93010; 99285-25